=== PATIENT | male | born 1975 ===

== ENCOUNTER 2019-04-22 07:31 | Day surgery (SDC) | payer OTHER ==
[~2019-04-22 07:31] MED LIST: PRILOSEC OTC20 MG PO; ZANTAC150 M3 PO
== END 2019-04-22 22:25 | disposition home or self-care (01) ==
LOC: CIR.AMB 07:31
DX: S52.591P Other fractures of lower end of right radius, subsequent encounter for closed fracture with malunion (principal); M25.821 Other specified joint disorders, right elbow; M24.831 Other specific joint derangements of right wrist, not elsewhere classified; M65.831 Other synovitis and tenosynovitis, right forearm